=== PATIENT | female | born 1975 | race Two or more races ===

== ENCOUNTER 2017-10-07 08:01 | Outpatient (CLI) | payer OTHER ==
[~2017-10-07 08:01] MED LIST: PAXIL10 MG/5 ML
== END 2017-10-07 08:16 | disposition home or self-care (01) ==
LOC: SONOGRAMA 08:01
DX: R10.11 Right upper quadrant pain (principal)

== ENCOUNTER 2018-07-26 12:24 | Outpatient (CLI) | payer OTHER | END 2018-07-26 12:26 | disposition home or self-care (01) | LOC: SONOGRAMA 12:24 → MAMO-SONO 13:15 | DX: E04.1 Nontoxic single thyroid nodule (principal) ==

== ENCOUNTER 2018-07-27 11:00 | Outpatient (CLI) | payer OTHER | END 2018-07-27 11:22 | disposition home or self-care (01) | LOC: RAD 501 11:00 | DX: M54.2 Cervicalgia (principal); M54.5 Low back pain ==

== ENCOUNTER → 2019-01-31 | Outpatient (CLI) | payer OTHER | END | disposition home or self-care (01) | LOC: MAMO-SONO 10:30 | DX: N60.11 Diffuse cystic mastopathy of right breast (principal); N60.12 Diffuse cystic mastopathy of left breast; Z12.31 Encounter for screening mammogram for malignant neoplasm of breast ==

== ENCOUNTER 2019-02-10 23:33 | Emergency (ER) | payer OTHER ==
[~2019-02-10] VITALS: Ht 175.3 cm; Wt 67.6 kg
[2019-02-10] MEDS ORDERED: ENULOSE10 GM/15 M (23:54)
[2019-02-10] MEDS ORDERED: KAOPECTATE262 MG/15 (23:55)
[2019-02-10] MEDS ORDERED: FIBER GUMMIES2 GM (23:55)
== END 2019-02-11 10:44 | disposition home or self-care (01) ==
LOC: ER 23:33
DX: K59.09 Other constipation (principal)

== ENCOUNTER 2019-06-15 10:48 | Outpatient (CLI) | payer OTHER ==
[~2019-06-15 10:48] MED LIST changes: +ENULOSE10 GM/15 M; +FIBER GUMMIES2 GM; +KAOPECTATE262 MG/15
== END 2019-06-15 13:19 | disposition home or self-care (01) ==
LOC: TOM 10:48
DX: M95.0 Acquired deformity of nose (principal); J34.2 Deviated nasal septum; J32.8 Other chronic sinusitis; J34.3 Hypertrophy of nasal turbinates; R09.82 Postnasal drip

== ENCOUNTER 2020-03-12 10:42 | Outpatient (CLI) | payer OTHER | END 2020-03-12 12:44 | disposition home or self-care (01) | LOC: MRI 10:42 | DX: G25.0 Essential tremor (principal); G44.221 Chronic tension-type headache, intractable | CPT/HCPCS: 70551 ==

== ENCOUNTER 2021-08-18 08:00 | Outpatient (CLI) | payer OTHER | END 2021-08-18 08:30 | disposition home or self-care (01) | LOC: PPH VACUNA 08:00 | PROVIDERS: ATTEND Emergency Medicine Pediatric Emergency Medicine | DX: Z23 Encounter for immunization (principal) ==

== ENCOUNTER 2022-08-24 12:17 | Outpatient (CLI) | payer OTHER | END 2022-08-24 12:29 | disposition home or self-care (01) | LOC: LAB 12:17 | PROVIDERS: ATTEND Radiology Diagnostic Radiology | DX: I10 Essential (primary) hypertension (principal) ==

== ENCOUNTER 2022-08-24 12:44 | Outpatient (CLI) | payer OTHER | END 2022-08-24 13:00 | disposition home or self-care (01) | LOC: MRI 12:44 | PROVIDERS: ATTEND Internal Medicine Cardiovascular Disease | DX: G35 Multiple sclerosis (principal); I10 Essential (primary) hypertension | CPT/HCPCS: 70552 ==

== ENCOUNTER 2023-05-31 09:58 | Outpatient (CLI) | payer OTHER | END 2023-05-31 10:00 | disposition home or self-care (01) | LOC: NUCLEAR 09:58 | PROVIDERS: ATTEND Internal Medicine Hematology & Oncology | DX: I70.218 Atherosclerosis of native arteries of extremities with intermittent claudication, other extremity (principal) ==

== ENCOUNTER 2023-06-01 10:04 | Outpatient (CLI) | payer OTHER | END 2023-06-01 10:12 | disposition home or self-care (01) | LOC: NUCLEAR 10:04 | PROVIDERS: ATTEND Internal Medicine Hematology & Oncology | DX: I87.2 Venous insufficiency (chronic) (peripheral) (principal) ==

== ENCOUNTER 2024-03-27 09:44 | Outpatient (CLI) | payer OTHER | END 2024-03-27 09:46 | disposition home or self-care (01) | LOC: TOM 09:44 | PROVIDERS: ATTEND Otolaryngology Facial Plastic Surgery | DX: M95.0 Acquired deformity of nose (principal); J34.2 Deviated nasal septum; J32.8 Other chronic sinusitis; J34.3 Hypertrophy of nasal turbinates; R09.82 Postnasal drip; R33.0 Drug induced retention of urine ==

== ENCOUNTER 2024-12-06 15:24 | Outpatient (CLI) | payer OTHER | END 2024-12-06 15:27 | disposition home or self-care (01) | LOC: SONOGRAMA 15:24 | PROVIDERS: ATTEND Internal Medicine Endocrinology, Diabetes & Metabolism | DX: E04.1 Nontoxic single thyroid nodule (principal) ==

== ENCOUNTER 2024-12-26 09:48 | Outpatient (CLI) | payer OTHER | END 2024-12-26 09:49 | disposition home or self-care (01) | LOC: NUCLEAR 09:48 | PROVIDERS: ATTEND Internal Medicine Endocrinology, Diabetes & Metabolism | DX: M81.0 Age-related osteoporosis without current pathological fracture (principal) ==

== ENCOUNTER 2025-05-20 15:26 | Outpatient (CLI) | payer OTHER | END 2025-05-20 15:30 | disposition home or self-care (01) | LOC: MRI 15:26 | DX: M48.061 Spinal stenosis, lumbar region without neurogenic claudication (principal) | CPT/HCPCS: 72148 ==

== ENCOUNTER 2025-05-30 00:39 | Emergency (ER) | payer OTHER ==
[~2025-05-30] VITALS: Ht 172.7 cm; Wt 70.3 kg
[2025-05-30] MEDS ORDERED: PROMETHAZINE HCL 50 MG/ML AMPUL IM STA (01:39)
[2025-05-30] MEDS ORDERED: MORPHINE SULFATE 4 MG/ML CARTRIDGE IV STA ×2 (01:39→03:21)
[2025-05-30] MEDS ORDERED: SODIUM CHLORIDE 0.45 % 1,000 ML IV ONE (01:45)
[2025-05-30] MEDS ORDERED: PROMETHAZINE HCL 50 MG/ML AMPUL IM ONE (02:01)
[2025-05-30 02:55] LABS: BASO % 0.3 % (0.1-1.2); EOS # 0.14 (0.04-0.54); EOS % 1.5 % (0.7-7.0); LYMPH # 0.66 (1.18-3.74); LYMPH % 7.0 % (19.3-53.1); MEAN PLATELET VOLUME 10.50 fl (9.4-12.4); MONO # 0.53 (0.24-0.82); MONO % 5.6 % (4.7-12.5); NEUT # 8.05 (1.56-6.13); NEUT % 85.4 % (34.0-71.1); RED CELL DISTRIBUTION WIDTH 16.7 % (11.6-14.4)
[2025-05-30 03:18] LABS: ALT/SGPT 20.0 U/L (12-78); AST/SGOT 14.0 U/L (15-37); BILIRUBIN TOTAL 0.39 mg/dL (0.3-1.2); BUN CREA RATIO 20.0 (7.0-25.0); CREATININE SERUM 1.14 mg/dL (0.55-1.02); GFR 50.25; GLOBULINA 3.8 G/DL (2.4-3.5); GLUCOSE FASTING 130.0 mg/dL (65-100); OSMOLALITY SERUM 285.0 MOSM/KG (275-295)
[2025-05-30 04:53] LABS: URINE APPEARANCE Clear; URINE BILIRRUBIN Negative (NEGATIVE); URINE BLOOD Small; URINE COLOR Yellow; URINE GLUCOSE Negative (NEGATIVE); URINE KETONE 15 (NEGATIVE); URINE LEUKOCYTE Negative; URINE NITRATE Negative; URINE PROTEIN Negative (NEGATIVE); URINE UROBILINOGEN 0.2 E.U./dl
[2025-05-30 04:57] LABS: URINE EPITHELIAL CELLS 4.5 uL (0.0-38.8); URINE RBC 52.9 uL (0.0-20.8); URINE WBC 3.8 uL (0.0-23.2)
[2025-05-30 05:00] LABS: URINE BACTERIA 3.5 uL (0.0-1933); URINE CAST 0.00 uL (0.0-1.40)
[2025-05-30] MEDS ORDERED: DOLOGESIC-DF 51 EACH PO (05:36)
[2025-05-30] MEDS ORDERED: TAMS0.4C PO (05:36)
== END 2025-05-30 06:03 ==
LOC: ER 00:40
PROVIDERS: General Practice
DX: N20.1 Calculus of ureter (principal); R10.A2 Flank pain, left side; Z88.6 Allergy status to analgesic agent

== ENCOUNTER 2025-05-31 20:23 | Emergency (ER) | payer OTHER ==
[~2025-05-31] VITALS: Ht 175.3 cm; Wt 70.3 kg
[~2025-05-31 20:23] MED LIST changes: +DOLOGESIC-DF 51 EACH PO; +TAMS0.4C PO
[2025-05-31] MEDS ORDERED: ONDANSETRON HCL 2 MG/ML VIAL IV STA (22:56)
[2025-05-31] MEDS ORDERED: FAMOTIDINE/PF 20 MG/2 ML VIAL IV PUSH STA (22:56)
[2025-05-31] MEDS ORDERED: MORPHINE SULFATE 2 MG/ML SYRINGE IV STA (22:57)
[2025-05-31] MEDS ORDERED: 0.9 % SODIUM CHLORIDE 1,000 ML IV STA (22:58)
[2025-05-31 23:56] LABS: BASO % 0.2 % (0.1-1.2); EOS # 0.09 (0.04-0.54); EOS % 0.9 % (0.7-7.0); LYMPH # 0.65 (1.18-3.74); LYMPH % 6.6 % (19.3-53.1); MEAN PLATELET VOLUME 10.40 fl (9.4-12.4); MONO # 0.68 (0.24-0.82); MONO % 6.9 % (4.7-12.5); NEUT # 8.35 (1.56-6.13); NEUT % 85.1 % (34.0-71.1); RED CELL DISTRIBUTION WIDTH 16.6 % (11.6-14.4)
[2025-06-01 00:17] LABS: ALT/SGPT 15.0 U/L (12-78); AST/SGOT 9.0 U/L (15-37); BILIRUBIN TOTAL 0.48 mg/dL (0.3-1.2); BUN CREA RATIO 9.0 (7.0-25.0); CREATININE SERUM 1.14 mg/dL (0.55-1.02); GFR 50.25; GLOBULINA 3.5 G/DL (2.4-3.5); GLUCOSE FASTING 129.0 mg/dL (65-100); OSMOLALITY SERUM 278.0 MOSM/KG (275-295)
[2025-06-01] MEDS ORDERED: MORPHINE SULFATE 2 MG/ML SYRINGE IV STA ×2 (00:17→08:16)
[2025-06-01 01:16] LABS: URINE APPEARANCE Clear; URINE BILIRRUBIN Negative (NEGATIVE); URINE BLOOD Large; URINE COLOR Orange; URINE GLUCOSE Negative (NEGATIVE); URINE KETONE Trace (NEGATIVE); URINE LEUKOCYTE Trace; URINE NITRATE Negative; URINE UROBILINOGEN 0.2 E.U./dl
[2025-06-01 01:19] LABS: URINE BACTERIA 52.8 uL (0.0-1933); URINE EPITHELIAL CELLS 9.2 uL (0.0-38.8); URINE RBC 4329.2 uL (0.0-20.8); URINE WBC 30.1 uL (0.0-23.2)
[2025-06-01 01:20] LABS: URINE CAST 0.14 uL (0.0-1.40); URINE PROTEIN 100 (NEGATIVE)
[2025-06-01] MEDS ORDERED: MAGNESIUM HYDROXIDE 400 MG/5 ML ML PO STA (04:35)
[2025-06-01] MEDS ORDERED: LACTULOSE 20 G/30 ML BLIST.PACK PO STA (04:35)
[2025-06-01] MEDS ORDERED: MINERAL OIL 30 ML BLIST.PACK PO STA (04:36)
[2025-06-01] MEDS ORDERED: MINERAL OIL 30 ML BLIST.PACK ONE (04:36)
[2025-06-01] MEDS ORDERED: LACTULOSE 20 G/30 ML BLIST.PACK ONE (04:36)
[2025-06-01] MEDS ORDERED: MAGNESIUM HYDROXIDE 30 ML BLIST.PACK PO ONE (04:37)
[2025-06-01] MEDS ORDERED: NA PHOS,M-B/NA PHOS,DI-BA 1 BOTTLE ENEMA RECTAL NR (09:30)
[2025-06-01] MEDS ORDERED: 0.9 % SODIUM CHLORIDE 1,000 ML IV ONE (09:30)
[2025-06-01] MEDS ORDERED: PYRIDIUM200 MG PO (09:31)
[2025-06-01] MEDS ORDERED: MACROBID 100 M100 MG PO (09:31)
[2025-06-01] MEDS ORDERED: TAMS0.4C PO (09:31)
[2025-06-01] MEDS ORDERED: KETO10TA2 PO (09:31)
== END 2025-06-01 11:34 | disposition home or self-care (01) ==
LOC: ER 20:23
PROVIDERS: General Practice
DX: N20.0 Calculus of kidney (principal); N23 Unspecified renal colic; Z88.6 Allergy status to analgesic agent